=== PATIENT | male | born 1975 | race Caucasian/White ===

== ENCOUNTER 2018-06-12 12:52 | Emergency (ER) | payer MEDICAID ==
[~2018-06-12] VITALS: Ht 172.7 cm; Wt 79.5 kg
[2018-06-12 12:57] VITALS: Ht 172.7 cm; Wt 79.5 kg
[2018-06-12] MEDS ORDERED: AMITRIPTYLINE H50 MG PO (13:00)
[2018-06-12] MEDS ORDERED: VOLTAREN75 MG PO (15:48)
[2018-06-12 16:58] VITALS: BP 139/100
== END 2018-06-12 16:58 | disposition home or self-care (01) ==
LOC: D.ER 12:52
DX: G43.909 Migraine, unspecified, not intractable, without status migrainosus (principal)

== ENCOUNTER 2018-06-14 17:29 | Emergency (ER) | payer MEDICAID ==
[~2018-06-14] VITALS: Ht 172.7 cm; Wt 79.5 kg
[~2018-06-14 17:29] MED LIST: AMITRIPTYLINE H50 MG PO; VOLTAREN75 MG PO
[2018-06-14 17:30] VITALS: Ht 172.7 cm; Wt 79.5 kg
[2018-06-14] MEDS ORDERED: ATARAX 25 MG TA25 MG PO (20:53)
[2018-06-14 22:09] VITALS: BP 140/90
== END 2018-06-14 21:53 | disposition home or self-care (01) ==
LOC: D.ER 17:29
DX: G43.909 Migraine, unspecified, not intractable, without status migrainosus (principal)

== ENCOUNTER → 2018-08-30 16:24 | Outpatient (CLI) | payer MEDICAID ==
[2018-06-14 17:30] VITALS: BMI 26.6
[~2018-08-30 16:24] MED LIST changes: +ATARAX 25 MG TA25 MG PO
== END | disposition home or self-care (01) ==
LOC: D.MRI 13:00
DX: R51 Headache (principal)